=== PATIENT | male | born 1995 | race Caucasian/White ===

== ENCOUNTER 2020-07-14 16:36 | Emergency (ER) | payer BC, OTHER ==
[~2020-07-14] VITALS: Ht 188 cm; Wt 77.0 kg
[2020-07-14 17:37] LABS: BASOPHILS % (AUTO) 0 % (0-1); EOSINOPHILS % (AUTO) 1 % (1-7); LYMPHOCYTES % (AUTO) 33 % (22-44); MEAN CORPUSCULAR HEMOGLOBIN 31.4 pg (27.5-34.5); MEAN CORPUSCULAR HGB CONC 34.4 g/dL (33.2-36.2); MEAN PLATELET VOLUME 8.3 fL (7.4-10.4); MONOCYTES % (AUTO) 9 % (2-9); NEUTROPHILS % (AUTO) 57 % (42-75); PLATELET COUNT 183 x10^3/uL (130-400); RED BLOOD COUNT 4.91 x10^6/uL (4.38-5.82); RED CELL DISTRIBUTION WIDTH 13.4 % (9.4-14.8)
[2020-07-14 17:43] LABS: MD NO
--- NOTE | 2020-07-14 17:43 | NUR ---
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
[2020-07-14 17:45] LABS: ALBUMIN 4.7 g/dL (3.4-5.0); CALCIUM 9.5 mg/dL (8.5-10.1)
[2020-07-14 17:51] LABS: ANION GAP 9 mmol/L (5-15); CHLORIDE 108 mmol/L (98-107); CREATININE 1.04 mg/dL (0.7-1.3); TROPONIN I < 0.015 ng/mL (0.000-0.045)
[2020-07-14 18:10] VITALS: BP 125/68
== END 2020-07-14 18:36 | disposition home or self-care (01) ==
LOC: ED 18:15
DX: R07.89 Other chest pain (principal); I44.5 Left posterior fascicular block; I45.10 Unspecified right bundle-branch block
CPT/HCPCS: 36415; 71045; 80048; 82040; 84484; 85025; 93005; 99285